=== PATIENT | female | born 1960 | race Caucasian/White ===

== ENCOUNTER → 2023-11-20 06:17 | Day surgery (SDC) | payer OTHER, SELFPAY | LOC: GI 06:17 | PROVIDERS: ATTENDING PHYSICIAN Specialist; FAMILY PHYSICIAN Emergency Medicine | DX: R12 Heartburn (principal); R05.3 Chronic cough; K22.89 Other specified disease of esophagus; K31.7 Polyp of stomach and duodenum; K31.89 Other diseases of stomach and duodenum; K29.50 Unspecified chronic gastritis without bleeding | CPT/HCPCS: 43239; 88305; 88342 ==

== ENCOUNTER → 2024-01-21 07:46 | Outpatient (REF) | payer OTHER, SELFPAY | LOC: HWRAD 07:46 | PROVIDERS: ATTENDING PHYSICIAN Emergency Medicine | DX: N95.1 Menopausal and female climacteric states (principal) | CPT/HCPCS: 77080 ==

== ENCOUNTER → 2024-03-03 06:54 | Outpatient (REF) | payer OTHER, SELFPAY | LOC: HWRAD 06:54 | PROVIDERS: ATTENDING PHYSICIAN Emergency Medicine | DX: R74.8 Abnormal levels of other serum enzymes (principal) | CPT/HCPCS: 76700 ==

== ENCOUNTER → 2024-06-02 17:06 | Outpatient (REF) | payer OTHER, SELFPAY | LOC: WDC 17:06 | PROVIDERS: ATTENDING PHYSICIAN Obstetrics & Gynecology Gynecology; FAMILY PHYSICIAN Emergency Medicine | DX: Z12.31 Encounter for screening mammogram for malignant neoplasm of breast (principal); Z12.39 Encounter for other screening for malignant neoplasm of breast | CPT/HCPCS: 77063; 77067 ==

== ENCOUNTER → 2025-02-09 14:15 | Outpatient (REF) | payer SELFPAY | LOC: RAD 14:15 | PROVIDERS: ATTENDING PHYSICIAN Internal Medicine Cardiovascular Disease; FAMILY PHYSICIAN Emergency Medicine | DX: I10 Essential (primary) hypertension (principal); E78.5 Hyperlipidemia, unspecified; E78.41 Elevated Lipoprotein(a) | CPT/HCPCS: 75571 ==

== ENCOUNTER → 2025-04-15 09:24 | Outpatient (REF) | payer OTHER, SELFPAY | LOC: HWRAD 09:24 | PROVIDERS: ATTENDING PHYSICIAN Internal Medicine Critical Care Medicine; FAMILY PHYSICIAN Emergency Medicine | DX: J84.9 Interstitial pulmonary disease, unspecified (principal); R05.3 Chronic cough | CPT/HCPCS: 71250 ==